=== PATIENT | female | born 1940 | race Caucasian/White ===

== ENCOUNTER → 2016-09-22 | Outpatient (REF) ==
[~2016-09-22] MED LIST: BACTRIM 400 MG-1 TAB PO; HEALTH CARE AM PO; MULTIPLE VITAMI1 CAP PO; OMEGA 31000 MG PO; PROBIOTIC FORMU1 CAP PO; TRUSOPT 5 ML5 ML OP; VITAMIN D1000 IU PO; XALATAN EYE DROPS OD; ZANTAC 150MG T150 MG PO
== END ==
LOC: COL.CARD 14:07
DX: I47.1 Supraventricular tachycardia (principal); R00.2 Palpitations

== ENCOUNTER → 2018-03-19 | Outpatient (REF) ==
[2018-03-19 18:33] LABS: THYROID STIMULATING HORMONE 2.84 uIU/mL (0.465-4.680)
== END ==
LOC: ZLAB.WCH 17:48
PROVIDERS: Family Medicine
DX: Z01.89 Encounter for other specified special examinations (principal)

== ENCOUNTER → 2018-04-23 | Outpatient (REF) | LOC: COL.CARD 16:59 | DX: Z01.818 Encounter for other preprocedural examination (principal) ==

== ENCOUNTER → 2021-07-13 | Outpatient (CLI) | payer MEDICARE, BC | LOC: COL.RAD 06:59 | DX: M43.16 Spondylolisthesis, lumbar region (principal); M47.816 Spondylosis without myelopathy or radiculopathy, lumbar region; M48.061 Spinal stenosis, lumbar region without neurogenic claudication ==